=== PATIENT | male | born 1995 | race Caucasian/White ===

== ENCOUNTER 2016-12-11 18:28 | Emergency (ER) ==
[2016-12-11 18:33] VITALS: BP 184/112; TEMP 99.1; BMI 22.1
--- NOTE | 2016-12-11 18:48 | ED.PDOC ---
General ED Provider: Dr. NANCI RICE-ER Chief Complaint: Rash Stated Complaint: i hve a rash under my testicles Time Seen by Physician: 18:35 Mode of Arrival: Walk-In Information Source: Patient Exam Limitations: No limitations Primary Care Provider: NANCI RICE Nursing and Triage Documentation Reviewed and Agree: Yes Skin Complaint Exam - Skin Rash/Itching Complaint/Exam Onset/Duration: 24hrs Symptoms Are: Still present Initial Severity: Mild Current Severity: Mild Location: underneath scrotum Potential Exposures: Reports: Unknown Aggravating: Reports: None Alleviating: Reports: None Associated Signs and Symptoms: Denies: Difficulty breathing, Fever, Chills Skin Findings: Present: Maculae Differential Diagnoses: Tinea Review of Systems - Review Of Systems Constitutional: Reports: No symptoms Eyes: Reports: No symptoms Ears, Nose, Mouth, Throat: Reports: No symptoms Respiratory: Reports: No symptoms Cardiac: Reports: No symptoms GI: Reports: No symptoms : Reports: No symptoms Musculoskeletal: Reports: No symptoms Skin: Reports: Rash Neurological: Reports: No symptoms Endocrine: Reports: No symptoms Hematologic/Lymphatic: Reports: No symptoms All Other Systems: Reviewed and Negative Past Medical History - Past Medical History Endocrine: Reports: None Cardiovascular: Reports: None Respiratory: Reports: None Hematological: Reports: None Gastrointestinal: Reports: None Genitourinary: Reports: None Neuro/Psych: Reports: None Musculoskeletal: Reports: None Cancer: Reports: None - Surgical History General Surgical History: Reports: Cholecystectomy, Other (Spiderbite) - Family History Family History: Reports: Unknown - Social History Smoking Status: Never smoker Hx Substance Use: No Alcohol Screening: None - Immunizations Tetanus Shot up to Date: No Physical Exam - Physical Exam Appearance: Well-appearing, No pain distress, Well-nourished Pain Distress: Mild Eyes: DANIA, EOMI, Conjunctiva clear ENT: Ears normal, Nose normal, Oropharynx normal Neck: Supple Respiratory: Airway patent, Breath sounds clear, Breath sounds equal, Respirations nonlabored Cardiovascular: RRR, Pulses normal, No rub, No murmur GI/: Soft, Nontender, No masses, Bowel sounds normal, No Organomegaly Musculoskeletal: Normal strength, ROM intact, No edema, No calf tenderness Skin: Warm, Dry, Normal color Neurological: Sensation intact, Motor intact, Reflexes intact, Cranial nerves intact, Alert, Oriented Psychiatric: Affect appropriate, Mood appropriate Critical Care Note - Critical Care Note Total Time (mins): 0 Course - Course Vital Signs: Temp Pulse Resp BP Pulse Ox 12/11/16 18:30 99.1 F 96 H 18 184/112 H 98 Departure - Departure Time of Disposition: 18:50 Disposition: HOME SELF-CARE Discharge Problem: Tinea cruris Instructions: Jock Itch (ED) Condition: Good Pt referred to PMD for follow-up: Yes Additional Instructions: diflucan 100mg q daily x 3 days--nizoral cream apply q daily and apply [place] soaks q daily till healed--see me tuesday if not resolving Allergies/Adverse Reactions: Allergies No Known Allergies Allergy (Verified 12/11/16 18:35) Home Medications: Ambulatory Orders 1 [No Reported Medications] 0 mg PO DAILY 03/08/13 Disposition Discussed With: Patient, Family
== END 2016-12-11 18:58 | disposition home or self-care (01) ==
LOC: ED 18:28
DX: B35.6 Tinea cruris (principal)
CPT/HCPCS: 99282

== ENCOUNTER 2018-02-18 16:51 | Emergency (ER) ==
[2018-02-18 17:01] VITALS: BP 176/105; TEMP 96.9; BMI 19.6
--- NOTE | 2018-02-18 17:06 | ED.PDOC ---
General ED Provider: Dr. NANCI WARD Chief Complaint: Shoulder Pain/Injury Stated Complaint: Chronic Rt Shoulder pain. Initially was chopping wood and this caused pain. Was swimming today and was sore afterwards. Previoulsy told by PCP Dr Bravo in December to come to ER for XRAY OR MRI SCAN. Father stated wanted to get it checked out today. Time Seen by Physician: 16:55 Mode of Arrival: Walk-In Information Source: Patient, Family Exam Limitations: No limitations Primary Care Provider: NANCI BRAVO Nursing and Triage Documentation Reviewed and Agree: Yes Reviewed sepsis parameters & appropriate labs ordered?: Yes System Inflammatory Response Syndrome: Not Applicable Sepsis Protocol: For patient's 13 years and over: Temp is 96.8 and below OR 101 and greater Pulse >90 BPM Resp >20/minute Acutely Altered Mental Status Are patient's symptoms suggestive of a new infection, such as: -Pneumonia -Skin, Soft Tissue -Endocarditis -UTI -Bone, Joint Infection -Implantable Device -Acute Abdominal Infection -Wound Infection -Meningitis -Blood Stream Catheter Infection -Unknown Musculoskeletal Complaint Exam - Shoulder Pain Complaint/Exam Mechanism of Injury: Reports: Other (chopping wood) Symptoms Are: Still present Timing: Intermittent Initial Severity: Moderate Current Severity: Mild Location: Reports: Discrete Character: Reports: Sharp, Aching Alleviating: Reports: OTC meds Aggravating: Reports: Movement, Internal rotation, External rotation Associated Signs and Symptoms: Denies: Swelling, Redness, Bruising, Fever, Weakness, Numbness, Tingling Related History: Reports: Similar episode Non-Orthopedic Risk Factors: Reports: None DVT Risk Factors: Reports: None Septic Arthritis Risk Factors: Reports: None Shoulder Findings: Absent: Swelling, Ecchymosis, Abnormal contour, Rotation Tenderness: Present: AC joint, Rotator cuff muscles. Absent: Clavicle, Proximal humerus Limited Range of Motion: Present: External rotation, Rotator cuff muscles Differential Diagnoses: Rotator Cuff Injury, Strain, Tendonitis Review of Systems - Review Of Systems Constitutional: Reports: No symptoms Eyes: Reports: No symptoms Ears, Nose, Mouth, Throat: Reports: No symptoms Respiratory: Reports: No symptoms Cardiac: Reports: No symptoms GI: Reports: No symptoms : Reports: No symptoms Musculoskeletal: Reports: No symptoms Skin: Reports: No symptoms Neurological: Reports: No symptoms Endocrine: Reports: No symptoms Hematologic/Lymphatic: Reports: No symptoms All Other Systems: Reviewed and Negative Past Medical History - Past Medical History Endocrine: Reports: None Cardiovascular: Reports: None Respiratory: Reports: None Hematological: Reports: None Gastrointestinal: Reports: None Genitourinary: Reports: None Neuro/Psych: Reports: None Musculoskeletal: Reports: None Cancer: Reports: None - Surgical History General Surgical History: Reports: Cholecystectomy, Other (Spiderbite) - Family History Family History: Reports: Unknown - Social History Smoking Status: Never smoker Hx Substance Use: No Alcohol Screening: None - Immunizations Tetanus Shot up to Date: Yes Physical Exam - Physical Exam Appearance: Well-appearing, No pain distress, Well-nourished Eyes: DANIA, EOMI, Conjunctiva clear ENT: Ears normal, Nose normal, Oropharynx normal Respiratory: Airway patent, Breath sounds clear, Breath sounds equal, Respirations nonlabored Cardiovascular: RRR, Pulses normal, No rub, No murmur GI/: Soft, Nontender, No masses, Bowel sounds normal, No Organomegaly Musculoskeletal: Normal strength, ROM intact (full ROM Rt Shoulder with mild discomfort to forward circumduction,minimal crepitance.), No edema, No calf tenderness Skin: Warm, Dry, Normal color Neurological: Sensation intact, Motor intact, Reflexes intact, Cranial nerves intact, Alert, Oriented Psychiatric: Affect appropriate, Mood appropriate Re-Evaluation - Re-Evaluation Time of Re-Evaluation: 18:30 Status: Unchanged Vital Signs Stable: Yes Appearance: NAD Lungs: Clear Skin: Warm and Dry Neuro: Alert and Oriented X3 CV: RRR Additional Comments: Explained results of xray Critical Care Note - Critical Care Note Total Time (mins): 0 Course - Course Orders, Labs, Meds: Orders Category Date Time Status SHOULDER, RIGHT MIN 2V Stat RADS 02/18/18 17:01 Taken Vital Signs: Temp Pulse Resp BP Pulse Ox 02/18/18 16:52 96.9 F L 90 16 176/105 H 98 Departure - Departure Time of Disposition: 18:35 Disposition: HOME SELF-CARE Discharge Problem: Right shoulder strain Instructions: Arthralgia (ED), Shoulder Pain (ED) Condition: Good Pt referred to PMD for follow-up: Yes (Dr Bravo 1 week) IPMP verified?: No Allergies/Adverse Reactions: Allergies No Known Allergies Allergy (Verified 12/11/16 18:35) Home Medications: Ambulatory Orders 1 [No Reported Medications] 0 mg PO DAILY 03/08/13 Ibuprofen [Motrin] 600 mg PO Q6H PRN #40 tablet 02/18/18 Disposition Discussed With: Patient, Family
--- NOTE | 2018-02-19 20:32 | DI ---
EXAM: Three views of the right shoulder HISTORY: Right shoulder. COMPARISON: none FINDINGS: There is no cortical irregularity or displaced fracture. There is no lytic or blastic lesi on. The glenohumeral joint and acromioclavicular joint are normal. The soft tissues are normal. IMPRESSION: No acute abnormality of the right shoulder
== END 2018-02-18 18:51 | disposition home or self-care (01) ==
LOC: ED 16:51
DX: S46.911A Strain of unspecified muscle, fascia and tendon at shoulder and upper arm level, right arm, initial encounter (principal); X50.3XXA Overexertion from repetitive movements, initial encounter
CPT/HCPCS: 99283

== ENCOUNTER 2018-10-19 11:35 | Outpatient (CLI) ==
[2013-03-08 12:57] VITALS: TEMP 98.6
--- NOTE | 2018-10-19 12:01 | DI ---
EXAM: Two views of the chest. History: Chest pain. Comparison: Chest radiograph 11/27/2009 Findings: Heart size is normal. No focal consolidation. No appreciable pleural fluid and no pneumo thorax. No acute osseous abnormalities. Impression: No acute cardiopulmonary process
== END 2018-10-19 11:36 | disposition home or self-care (01) ==
LOC: RAD 11:35
PROVIDERS: ATTEND Family Medicine
DX: R07.9 Chest pain, unspecified (principal)

== ENCOUNTER 2018-10-23 08:54 | Outpatient (CLI) ==
[2013-03-08 12:57] VITALS: TEMP 98.6
--- NOTE | 2018-10-23 09:39 | DI ---
EXAM: Double contrast upper GI History: Chest pain, GERD. Technique: Patient was given gas crystals. Patient was then given oral barium multiple spot films o f the esophagus, stomach and duodenum were obtained in various projections. Findings: The course and caliber of the esophagus are within normal limits. No mucosal lesions or f illing defects identified. The gastroesophageal junction is patent. No hiatal hernia. Gastroesopha geal reflux was observed. The stomach is normal in appearance without obvious polyp or ulceration. The course and caliber of the duodenum are within normal limits. No extravasation of contrast materi al. Impression: Gastroesophageal reflux. No hiatal hernia
== END 2018-10-23 08:55 | disposition home or self-care (01) ==
LOC: RAD 08:54
PROVIDERS: ATTEND Family Medicine
DX: R07.9 Chest pain, unspecified (principal); K21.9 Gastro-esophageal reflux disease without esophagitis

== ENCOUNTER 2018-10-25 09:48 | Outpatient (CLI) ==
[2013-03-08 12:57] VITALS: TEMP 98.6
--- NOTE | 2018-10-26 10:51 | ECHOCOLOR ---
Date of Exam: 10/25/18 Ordering Physician: DR. NANCI RICE Reason for Echo: CHEST PAIN M-Mode Normal Adult Results LV Dimensions Normal Adult Results AoV Opening excursions >1.6 >1.6 LVEDD-base- 3.5-5.8 4.5 Ao root dimensions 2.0-3.7 2.5 LVESD-base- 3.1-4.6 L. Atrium dimensions 1.9-3.8 2.5 Post. Wall thickness 0.8-1.1 1.0 IV septum (thickness) 0.7-1.2 1.0 Post. Wall excursion 0.72-1.3 NORMAL Septal motion NORMAL Systolic motion R. Ventricular cavity 1.5-2.0 NORMAL LVEF 60% 64% Paradoxical septal wall motion NORMAL 2-D: 2-D M Mode Echocardiogram was performed using apical four chamber and left parasternal long and short axis views. Mitral, tricuspid and aortic valves appear to be normal. Contractility of the left ventricle seems to be normal, so is the cavity size. Left atrial cavity size and aortic root appear to be normal. There is no pericardial effusion. There is no thrombus noted in the left ventricular or left aortic cavity. No mitral valve prolapse noted. SPECTRAL DOPPLER WITH COLOR FLOW: NORMAL VALVULAR FLOW INDICES, TRIVIAL PULMONARY REGURGITATION M-MODE: MV: NORMAL AV: NORMAL TV: NORMAL PV: CHAMBER SIZE: NORMAL WALL MOTION: NORMAL PERICARDIUM: NORMAL INTERPRETATION: 1. NORMAL 2 "D" "M" MODE ECHO 2. SPECTRAL DOPPLER--NORMAL VALVULAR FLOW INDICES 3. COLOR DOPPLER--TRIVIAL TRICUSPID PULMONARY REGURGITATION MTDD
== END 2018-10-25 09:49 | disposition home or self-care (01) ==
LOC: CAR 09:48
PROVIDERS: ATTEND Family Medicine
DX: R07.9 Chest pain, unspecified (principal)